=== PATIENT | male | born 1995 | race Two or more races ===

== ENCOUNTER 2017-12-05 20:07 | Emergency (ER) | payer SELFPAY ==
[2017-12-05] MEDS: IV NORMAL SALINE 1000ML BAG 1,000 ML IV (22:24)
[2017-12-05] MEDS: ONDANSETRON PF 4 MG/2 ML VIAL. IV (22:25)
[2017-12-05] MEDS: fentaNYL PF VIAL 100 MCG/2 ML VIAL IV (22:26)
[2017-12-05] MEDS: PANTOPRAZOLE IV PUSH 40 MG VIAL. IVP (22:26)
[2017-12-05] MEDS: ACETAMINOPHEN 500 MG TABLET PO (22:26)
[2017-12-05 22:38] LABS: ADD MAN DIFF? NO
[2017-12-05 22:40] LABS: BASO % 0 % (0-3); EOS % 0 % (0-3); HEMOGLOBIN 17.5 g/dL (13.0-17.5); LYMPH # 0.8 x10^3/uL (1.0-4.8); LYMPH % 7 % (24-48); MEAN CORPUSCULAR HEMOGLOBIN 30 pg (25-35); MEAN CORPUSCULAR HGB CONC 34 g/dL (31-37); MEAN CORPUSCULAR VOLUME 87 fL (79-100); MONO # 1.3 x10^3/uL (0.0-1.1); MONO % 12 % (0-9); NEUT # 9.3 x10^3uL (1.8-7.7); NEUT % 81 % (31-73); PLATELET COUNT 100 x10^3/uL (140-400); RED BLOOD COUNT 5.87 x10^6/uL (4.30-5.70); RED CELL DISTRIBUTION WIDTH 14.1 % (11.5-14.5); WHITE BLOOD COUNT 11.5 x10^3/uL (4.0-11.0)
[2017-12-05] MEDS ORDERED: CONTRAST GIVEN. MC (22:45)
[2017-12-05 22:55] LABS: ANION GAP 8 (6-14); BLOOD UREA NITROGEN 6 mg/dL (8-26); BUN/CREATININE RATIO 5 (6-20); CALCIUM 9.3 mg/dL (8.5-10.1); CARBON DIOXIDE 28 mmol/L (21-32); CHLORIDE 100 mmol/L (98-107); CREATININE 1.1 mg/dL (0.7-1.3); GFR 85.3; GLUCOSE 99 mg/dL (70-99); POTASSIUM 3.5 mmol/L (3.5-5.1); SODIUM 136 mmol/L (136-145)
[2017-12-05 22:56] LABS: ETHANOL < 10 mg/dL (0-10)
[2017-12-05 23:00] LABS: ALBUMIN 4.2 g/dL (3.4-5.0); ALBUMIN/GLOBULIN RATIO 1.1 (1.0-1.7); ALK PHOS 90 U/L (46-116); ALT (SGPT) 24 U/L (16-63); AST (SGOT) 15 U/L (15-37); LIPASE 74 U/L (73-393); TOTAL BILIRUBIN 0.7 mg/dL (0.2-1.0); TOTAL PROTEIN 7.9 g/dL (6.4-8.2)
[2017-12-05 23:03] LABS: LACTIC ACID 0.9 mmol/L (0.4-2.0)
[2017-12-05] MEDS: IOHEXOL 300 MG/ML 100ML VIAL. IV (23:21)
[2017-12-06 00:20] LABS: BILIRUBIN,URINE NEGATIVE (NEG); CLARITY,URINE CLEAR; COLOR,URINE YELLOW; GLUCOSE,URINE NEGATIVE (NEG); NITRITE,URINE NEGATIVE (NEG); PH,URINE 5.5; PROTEIN,URINE NEGATIVE (NEG-TRACE); UROBILINOGEN,URINE 0.2 mg/dL (0.2 mg/dL)
[2017-12-06 00:25] LABS: BACTERIA,URINE 0 /HPF (0-FEW); RBC,URINE RARE /HPF (0-2); SQUAMOUS EPITHELIAL CELL,UR OCC /LPF; WBC,URINE 0 /HPF (0-4)
[2017-12-06 00:27] LABS: BARBITURATES NEG (NEG); BENZODIAZEPINES NEG (NEG); CANNABINOIDS NEG (NEG); COCAINE NEG (NEG); METHADONE NEG (NEG); OPIATES NEG (NEG); PHENCYCLIDINE NEG (NEG)
[2017-12-06 00:28] LABS: AMPHETAMINE/METHAMPHETAMINE NEG (NEG); ETHANOL, URINE NEG (NEG)
== END 2017-12-06 00:59 | disposition home or self-care (01) ==
LOC: ER 12-06 00:59
DX: R10.32 Left lower quadrant pain (principal); R10.31 Right lower quadrant pain; R10.12 Left upper quadrant pain; R11.2 Nausea with vomiting, unspecified; R19.7 Diarrhea, unspecified; R50.9 Fever, unspecified; D69.6 Thrombocytopenia, unspecified
CPT/HCPCS: 36415; 74177; 80053; 80307; 81001; 83605; 83690; 85025; 87040; 96361; 96374; 96375; 99285-25; C9113; G0480; J2405; J3010; J7030; Q9967